=== PATIENT | female | born 1990 | race Hispanic/Latino ===

== ENCOUNTER 2018-11-22 11:24 | Inpatient (IN) | payer SELFPAY ==
[~2018-11-22] VITALS: Ht 154.9 cm; Wt 69.4 kg
[2018-11-22 12:45] LABS: HEMATOCRIT 37.8 % (36-48); MEAN CORPUSCULAR HEMOGLOBIN 27.9 pg (27.0-33.0); MEAN CORPUSCULAR HGB CONC 33.8 g/dL (32.0-36.0); MEAN CORPUSCULAR VOLUME 82.6 fL (79-99); PLATELET COUNT (AUTO) 292 K/uL (130-400); RED BLOOD CELL COUNT(AUTO) 4.58 MIL/uL (4.00-5.50); RED CELL DISTRIBUTION WIDTH 16.9 % (11.0-15.5)
[2018-11-22 12:46] LABS: APPEARANCE,URINE CLEAR (CLEAR); BILIRUBIN,URINE NEGATIVE (NEGATIVE); COLOR,URINE YELLOW (YELLOW); GLUCOSE, URINE (UA) NEGATIVE (NEGATIVE); KETONES,URINE 5 mg/dL (NEGATIVE); LEUKOCYTE ESTERASE ,URINE SMALL (NEGATIVE); NITRATE,URINE NEGATIVE (NEGATIVE); OCCULT BLOOD,URINE TRACE-INTACT (NEGATIVE); PH,URINE 6.5 (5.0-8.0); PROTEIN,URINE NEGATIVE (NEGATIVE)
[2018-11-22 13:17] LABS: BACTERIA,URINE Many /HPF (None Seen); MUCUS,URINE Moderate LPF (None Seen); RBC,URINE 0-1 /HPF (0-1)
[2018-11-22] MEDS: LACTATED RINGERS 1000ML 1,000 ML IV PRN ×2 (13:17→19:01)
[2018-11-22] MEDS ORDERED: DINOPROSTONE 10 MG VAGINAL SUPP VG SCH (14:20)
[2018-11-22] MEDS ORDERED: PREN1TAB80 PO (20:22)
[2018-11-22 20:24] VITALS: BP 105/68
[2018-11-23] MEDS: LACTATED RINGERS 1000ML 1,000 ML IV PRN (02:09)
[2018-11-23] MEDS ORDERED: OXYTOCIN-LR 20 UNITS/1000 ML 1,000 ML IV ONE ×2 (02:39→13:42)
[2018-11-23] MEDS ORDERED: OXYTOCIN 10 USP UNITS/ML 20 UNIT in LACTATED RINGERS 1000ML 1,000 ML IV SCH (03:00)
[2018-11-23 08:09] LABS: HEPATITIS Bs ANTIGEN SCREEN P Negative (Negative)
[2018-11-23] MEDS ORDERED: PROMETHAZINE HCL 25 MG/ML 1ML AMPULE IM SCH ×2 (09:15→11:30)
[2018-11-23] MEDS ORDERED: MEPERIDINE-PF 50 MG/ML SYG IVP SCH ×2 (09:15→11:30)
[2018-11-23] MEDS ORDERED: LIDOCAINE HCL 1% 20 ML VIAL ONE (13:42)
[2018-11-23] MEDS ORDERED: LANOLIN 30GM OINTMENT TP PRN (16:45)
[2018-11-23] MEDS ORDERED: DIPH,PERTUSS(ACELL),TET VAC/PF 0.5 ML VIAL IM PRN (16:45)
[2018-11-23] MEDS ORDERED: ACETAMINOPHEN 325 MG TAB PO PRN (16:45)
[2018-11-23] MEDS ORDERED: MEASLES/MUMPS/RUBELLA VACCINE, LIVE 0.5 ML/VIAL SQ PRN (16:45)
[2018-11-23] MEDS ORDERED: BENZOCAINE/LANOLIN/ALOE VERA 60 ML AEROSOL TP PRN (16:45)
[2018-11-23] MEDS ORDERED: WITCH HAZEL 1 PAD TP PRN (16:45)
[2018-11-23] MEDS: IBUPROFEN 600 MG TABLET PO PRN (18:14)
[2018-11-23 19:25] VITALS: BP 124/62
[2018-11-23] MEDS: DOCUSATE SODIUM 100 MG CAP PO SCH (21:07)
[2018-11-23 23:20] VITALS: BP 96/53
[2018-11-24 03:22] VITALS: BP 98/49
[2018-11-24] MEDS: IBUPROFEN 600 MG TABLET PO PRN ×2 (04:42→16:48)
[2018-11-24 05:49] LABS: HEMATOCRIT 29.1 % (36-48); MEAN CORPUSCULAR HGB CONC 33.9 g/dL (32.0-36.0); MEAN CORPUSCULAR VOLUME 82.8 fL (79-99); PLATELET COUNT (AUTO) 261 K/uL (130-400); RED BLOOD CELL COUNT(AUTO) 3.52 MIL/uL (4.00-5.50); WHITE BLOOD COUNT (AUTO) 22.5 K/uL (4.8-10.8)
[2018-11-24 07:03] VITALS: BP 103/53
[2018-11-24] MEDS: DOCUSATE SODIUM 100 MG CAP PO SCH (09:18)
[2018-11-24 11:20] VITALS: BP 97/56
--- NOTE | 2018-11-24 16:55 | NUR ---
DISCHARGE PT STABLE, NO PAIN, NO COMPLAINTS; PT LEFT UNIT, VIA WHEELCHAIR, WITH BABY IN ARMS, ACCOMPANIED BY RN AND FAMILY MEMBERS CARRYING ALL PERSONAL BELONGINGS, SITZ BATH, AND INSTRUCTIONS; PT LEFT FACILITY IN PERSONAL VEHICLE
== END 2018-11-24 16:55 | disposition home or self-care (01) | DRG 807 ==
LOC: WSH 11:30 → LDH 11-23 11:21 → WSH 11-23 19:25
PROVIDERS: ADMIT Obstetrics & Gynecology; ATTEND Obstetrics & Gynecology
PROC: 3E033VJ Introduction of Other Hormone into Peripheral Vein, Percutaneous Approach (ICD-10-PCS; 2018-11-22)
PROC: 10E0XZZ Delivery of Products of Conception, External Approach (ICD-10-PCS; principal; 2018-11-23)
PROC: 0W8NXZZ Division of Female Perineum, External Approach (ICD-10-PCS; 2018-11-23)
PROC: 3E0P7VZ Introduction of Hormone into Female Reproductive, Via Natural or Artificial Opening (ICD-10-PCS; 2018-11-23)
PROC: 10907ZC Drainage of Amniotic Fluid, Therapeutic from Products of Conception, Via Natural or Artificial Opening (ICD-10-PCS; 2018-11-23)
DX: O80 Encounter for full-term uncomplicated delivery (principal); Z37.0 Single live birth; Z3A.40 40 weeks gestation of pregnancy
CPT/HCPCS: 36415; 81001; 85027; 86592; 86850; 86870; 86900; 86901; 86905; 87340; A4351; A4606; G0378; J2175; J2550; J2590; J7120